=== PATIENT | male | born 1965 | race Caucasian/White ===

== ENCOUNTER 2017-06-12 22:27 | Emergency (ER) | payer BC ==
[2017-06-12 22:48] VITALS: BP 109/69; PULSE 65; TEMP 98.2; BMI 16.9
--- NOTE | 2017-06-13 01:57 | PDOC ---
History of Present Illness - General History Source: Patient Exam Limitations: No Limitations - History of Present Illness Initial Comments: 06/13/17 02:13 The patient is a 51 year old male with significant past medical history of [place], hypertension, hyperlipidemia who presents to the ED for 1 week of increasing pain, swelling, and redness of the left calf radiating down to the foot. Patient reports he was playing soccer a week ago when he got kicked in the left posterior calf. Subsequently, he developed pain, swelling and redness above and below the calf, tracking all the way down to the dorsum of the left foot. Patient is still able to ambulate. The patient denies fever, chills, cough, SOB, chest pain, and palpitations. The patient denies abdominal pain, nausea, vomiting, and diarrhea. Allergies: NKDA Social History: No alcohol, tobacco, or drug use reported. Past Surgical History: appendectomy PCP: n/a <Radha Lopez - Last Filed: 06/13/17 04:14> - General History Source: Patient <Bryn Garcia - Last Filed: 06/13/17 04:17> - General Chief Complaint: Edema Stated Complaint: FOOT INJURY Time Seen by Provider: 06/13/17 01:53 Past History <Radha Lopez - Last Filed: 06/13/17 04:14> - Past Medical History Cardiac Disorders: Yes (LA ()) HTN: Yes Hypercholesterolemia: Yes - Surgical History Appendectomy: Yes - Psycho/Social/Smoking Cessation Hx Anxiety: No Suicidal Ideation: No Smoking History: Never smoked Have you smoked in the past 12 months: No Information on smoking cessation initiated: No Hx Alcohol Use: No Drug/Substance Use Hx: No Substance Use Type: None <Bryn Garcia - Last Filed: 06/13/17 04:17> - Past Medical History Allergies/Adverse Reactions: Allergies Allergy/AdvReac Type Severity Reaction Status Date / Time No Known Allergies Allergy Verified 06/12/17 22:45 Home Medications: Ambulatory Orders Aspirin [ASA -] 325 mg PO DAILY 08/16/14 Atorvastatin Ca [Lipitor] 10 mg PO HS 08/16/14 Lisinopril [Prinivil] 5 mg PO DAILY 08/16/14 Nebivolol HCl [Bystolic] 2.5 mg PO DAILY 08/16/14 Methocarbamol [Robaxin -] 1,000 mg PO QID #40 tablet 03/10/16 Review of Systems - Review of Systems Able to Perform ROS?: Yes Comments:: 06/13/17 02:13 CONSTITUTIONAL: Absent: fever, no chills, no fatigue EYES: Absent: visual changes ENT: Absent: ear pain, no sore throat CARDIOVASCULAR: Absent: chest pain, no palpitations RESPIRATORY: Absent: cough, no SOB GI: Absent: abdominal pain, no nausea, no vomiting, no constipation, no diarrhea GENITOURINARY: Absent: dysuria, no frequency, no hematuria MUSCULOSKELETAL: +increasing pain, swelling, and redness of the left calf radiating down to the foot Absent: back pain SKIN: Absent: rash NEURO: Absent: headache <Radha Lopez - Last Filed: 06/13/17 04:14> *Physical Exam - Vital Signs Last Vital Signs Temp Pulse Resp BP Pulse Ox 98.2 F 65 19 109/69 99 06/12/17 22:46 06/12/17 22:46 06/12/17 22:46 06/12/17 22:46 06/12/17 22:46 - Physical Exam Comments: 06/13/17 02:13 GENERAL: Well-appearing, well-nourished. No apparent distress. HEENT: Normocephalic, atraumatic. PERRL, EOM intact. CARDIOVASCULAR: Normal S1, S2. Regular rate and rhythm. PULMONARY: Clear to auscultation bilaterally. ABDOMEN: Soft, non-distended, non-tender. MUSCULOSKELETAL Normal range of motion at all joints. No bony deformities. No CVA tenderness. EXTREMITIES: Diffuse tenderness and ecchymosis to the left posterior calf and the left anterior fib-tib region. Ecchymosis, tenderness and swelling to the dorsum of the left foot and left medial tibia. SKIN: Warm and dry. Normal capillary refill. No rashes. No jaundice. NEUROLOGICAL: Alert, awake, appropriate. Cranial nerves 2-12 intact. No focal neurological deficits. Gait is steady. <Radha Lopez - Last Filed: 06/13/17 04:14> - Vital Signs Last Vital Signs Temp Pulse Resp BP Pulse Ox 98.2 F 65 19 109/69 99 06/12/17 22:46 06/12/17 22:46 06/12/17 22:46 06/12/17 22:46 06/12/17 22:46 <Bryn Garcia - Last Filed: 06/13/17 04:17> ED Treatment Course - RADIOLOGY Radiograph Interpretation: 06/13/17 04:14 EXAM: CT left lower extremity without contrast Reviewed by Imaging installation technician: FINDINGS: There is no fracture. 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 No joint effusion of the knee or ankle.. There is scattered subcutaneous edema which may represent bruising, most commonly seen next to the medial aspect of the distal calf. A 4.2 x 2.1 x 1.2 cm subcutaneous density adjacent to the proximal tibia could represent a hematoma. An infectious process is not excluded. IMPRESSION: No fracture. Soft tissue edema likely represents bruising although an infectious process is not completely excluded, and there is a a suspected 4.2 cm subcutaneous hematoma adjacent to the proximal tibia. <Radha Lopez - Last Filed: 06/13/17 04:14> Medical Decision Making - Medical Decision Making 06/13/17 04:17 Dr. Garcia: The scribe's documentation has been prepared under my direction and personally reviewed by me in its entirery. I confirm that the note above accurately reflects all work, treatment, procedures, and medical decision making performed by me. <Bryn Garcia - Last Filed: 06/13/17 04:17> *DC/Admit/Observation/Transfer - Attestations Scribe Attestion: 06/13/17 02:14 Documentation prepared by Radha Lopez, acting as medical physicist for Bryn Garcia MD/DO. <Radha Lopez - Last Filed: 06/13/17 04:14> - Discharge Dispostion Admit: No <Bryn Garcia - Last Filed: 06/13/17 04:17> Diagnosis at time of Disposition: Leg pain, left - Discharge Dispostion Disposition: HOME Condition at time of disposition: Stable - Referrals Referrals: Alec Villa MD [Staff Physician] - - Patient Instructions Printed Discharge Instructions: DI for Leg Pain
== END 2017-06-13 04:22 | disposition home or self-care (01) ==
LOC: JER 22:27
DX: S89.82XA Other specified injuries of left lower leg, initial encounter (principal); W50.1XXA Accidental kick by another person, initial encounter; Y93.66 Activity, soccer; Y92.322 Soccer field as the place of occurrence of the external cause; Y99.8 Other external cause status; I25.10 Atherosclerotic heart disease of native coronary artery without angina pectoris; I10 Essential (primary) hypertension; I25.2 Old myocardial infarction
CPT/HCPCS: 73700-TC-RT; 99281-25

== ENCOUNTER 2018-09-21 14:41 | Emergency (ER) | payer BC ==
[2018-09-21 15:01] VITALS: TEMP 99.3; BMI 26.4
--- NOTE | 2018-09-21 15:22 | PDOC ---
History of Present Illness - General Chief Complaint: Pain Stated Complaint: ABDOMINAL PAIN Time Seen by Provider: 09/21/18 15:07 - History of Present Illness Initial Comments: 09/21/18 15:21 53 yo M with h/o HTN, HLD, VT who p/w right sided abdominal pain. Patient with 2 days, of worsening, pleuritic, RUQ pain at lower rib margin. Pain also worse with rotational movement. Patient reports recent fall 3-4 days ago. Denies heavy lifting, repetitive movement, straining. Patient denies N/V, palpitations, F,C, CP, cough, wheezing, leg swelling/leg pain, SOB, urinary complaints, abdominal pain, hematuria. BPR,, diarrhea, constipation, lightheadedness, weakness, sensory changes. PMHx: as noted above. Does not recall past stress testing. Denies h/o stent placement, CABG. Denies h/o abdominal surgery. ROS: as noted SHx: Distant smoking history. Denies Etoh, IVDA. Allergies:NKDA Cardiology Dr. Cisneros Past History - Past Medical History Allergies/Adverse Reactions: Allergies Allergy/AdvReac Type Severity Reaction Status Date / Time No Known Allergies Allergy Verified 09/21/18 14:56 Home Medications: Ambulatory Orders Aspirin [ASA -] 162 mg PO DAILY 08/16/14 Atorvastatin Ca [Lipitor] 10 mg PO HS 08/16/14 Lisinopril [Prinivil] 5 mg PO DAILY 08/16/14 Nebivolol HCl [Bystolic] 2.5 mg PO DAILY 08/16/14 Cardiac Disorders: Yes ([place] ()) COPD: No HTN: Yes Hypercholesterolemia: Yes - Surgical History Appendectomy: Yes - Suicide/Smoking/Psychosocial Hx Smoking History: Never smoked Have you smoked in the past 12 months: No Hx Alcohol Use: No Drug/Substance Use Hx: No Substance Use Type: None Review of Systems - Review of Systems Comments:: 09/21/18 15:21 GENERAL/CONSTITUTIONAL: No fever or chills. No weakness. HEAD, EYES, EARS, NOSE AND THROAT: No change in vision. No ear pain or discharge. No sore throat. CARDIOVASCULAR: +chest pain. No shortness of breath RESPIRATORY: No cough, wheezing, or hemoptysis. GASTROINTESTINAL: No nausea, vomiting, diarrhea or constipation. GENITOURINARY: No dysuria, frequency, or change in urination. MUSCULOSKELETAL: No joint or muscle swelling or pain. No neck or back pain. SKIN: No rash NEUROLOGIC: No headache, vertigo, loss of consciousness, or change in strength/ sensation. ENDOCRINE: No increased thirst. No abnormal weight change HEMATOLOGIC/LYMPHATIC: No anemia, easy bleeding, or history of blood clots. ALLERGIC/IMMUNOLOGIC: No hives or skin allergy. *Physical Exam - Vital Signs Last Vital Signs Temp Pulse Resp BP Pulse Ox 99.3 F 59 L 18 104/69 98 09/21/18 14:52 09/21/18 14:52 09/21/18 14:52 09/21/18 14:52 09/21/18 14:52 - Physical Exam Comments: 09/21/18 15:21 GENERAL: Awake, alert, and fully oriented, in no acute distress HEAD: No signs of trauma, normocephalic, atraumatic EYES: PERRLA, EOMI, sclera anicteric, conjunctiva clear ENT: Auricles normal inspection, hearing grossly normal, nares patent, oropharynx clear without exudates. Moist mucosa NECK: Normal ROM, supple, no lymphadenopathy, JVD, or masses LUNGS: No distress, speaks full sentences, clear to auscultation bilaterally HEART: Regular rate and rhythm, normal S1 and S2, no murmurs, rubs or gallops, peripheral pulses normal and equal bilaterally. CHEST: + Reproducible right intercostal margin ttp, with absent bony deformity, crepitus. ABDOMEN: Soft, nontender, normoactive bowel sounds. No guarding, no rebound. No masses EXTREMITIES : Normal inspection, Normal range of motion, no edema. No clubbing or cyanosis. SKIN: Warm, Dry, normal turgor, no rashes or lesions noted Moderate Sedation - Procedure Monitoring Vital Signs: Procedure Monitoring Vital Signs Temperature 99.3 F 09/21/18 14:52 Pulse Rate 59 L 09/21/18 14:52 Respiratory Rate 18 09/21/18 14:52 Blood Pressure 104/69 09/21/18 14:52 O2 Sat by Pulse Oximetry (%) 98 09/21/18 14:52 ED Treatment Course - LABORATORY CBC & Chemistry Diagram: 09/21/18 16:16 09/21/18 16:16 Medical Decision Making - Medical Decision Making 09/21/18 15:48 53 yo M with h/o HTN, HLD, VT who p/w right sided pleuritic, abdominal pain. VSS , AF, A&OX3. Physical exam with reproducible RUQ ttp at intercostal margin . Likely MSK related pain. ACS/VT r/o. R/o PNA. Low risk PE based on Weils criteria. Although, patient without GI complaints will consider biliary dz., esophagitis, gastritis. Ddx also includes pericarditis, fracture, hernia. ED Course: CBC, CMP, Cardiac Pr. EKG, CXR 09/21/18 17:47 RUQ U/S: No evidence of biliary dz. Nml appearing liver. FAST: Neg PULM U/S: No evidence of PTX or lung pathology 09/21/18 17:52 CBC: Unremarkable CXR: Unremarkable 09/21/18 17:55 EK09/21/18 19:01 CMP: Unremarkable Trop: Neg 09/21/18 22:19 CTA chest: Scattered atelectasis. No PE, or PTX CT AP: Dilation ascending aorta 4.2 cm. No Ao dissection Stable for d/c with return precautions. Advised to f/u with PMD. *DC/Admit/Observation/Transfer Diagnosis at time of Disposition: Abdominal pain Qualifiers: Abdominal location: right upper quadrant Qualified Code(s): R10.11 - Right upper quadrant pain - Discharge Dispostion Disposition: HOME Condition at time of disposition: Stable - Referrals - Patient Instructions Printed Discharge Instructions: DI for Muscle Strain Additional Instructions: Please return to the emergency department with any new or worsening symptoms or concerns. Please follow up with your primary care physician within 72 hours. Please follow up with PMD for Ascending aorta aneurysm 4.2 cm. - Post Discharge Activity - Attestations Physician Attestion: 09/21/18 15:22 I attest to the information provided in this note.
[2018-09-21] MEDS ORDERED: NAPROXEN 500 MG TABLET (FP) PO ONE (15:50)
--- NOTE | 2018-09-21 16:11 | PDOC ---
Attending Attestation - HPI HPI: 09/21/18 16:12 The patient is a 53 year old male with a significant past medical history of HTN , HLD, and [place], who presents to the ED for right sided pleuritic pain to his right upper quadrant for about 2 days. He reportedly fell 3 days ago on the sidewalk while [place] the train station and landed on his back but denies LOC or head trauma. The patient denies palpitations, shortness of breath, headache and dizziness. The patient denies fever, chills, nausea, vomit, diarrhea and constipation. The patient denies dysuria, frequency, urgency and hematuria. Allergies: NKDA Dedicated Truck Driver: Dr. Young - Medical Decision Making 09/21/18 16:12 Documentation prepared by Candice Peace, acting as medical territory manager for Linda Duron MD <Candice Peace - Last Filed: 09/21/18 16:39> - Resident Resident Name: Claude Faustin - ED Attending Attestation I have performed the following: I have examined & evaluated the patient, The case was reviewed & discussed with the resident, I agree w/resident's findings & plan, Exceptions are as noted - Physicial Exam PE: 09/21/18 17:14 head atraumatic. awake alert lungs clear bilaterally heart rrr no mrg abd soft ruq ttp. no rib crepitus or step off. no noted eccymosis. no cva tenderness. skin warm and dry. no eccymsis. legs wwp no edema no calf tenderness. 2 + dp/ pt no midline spinal tenderness. GCs 15 - Medical Decision Making 09/21/18 17:15 differential: traumatic injury such as rib fx, liver lac, cholelithiasis, cholecystitis, renal injury pe. acs. considered. plan ekg labx. cxr . will perform bedside ruq ultraound and fast exam. 09/21/18 17:52 focused ED ultrasound RUQ indication RUQ pain gallladder scanned in two planes. no stones no wall thickening. no pericholecystic fluid. cbd < 4mm. anterior gallbladder wall < 4mm negative sonographic medina's impressions: normal gallbladder focused ED ultrasound FAST ., indication trauma ruq pain r/o free fluid right upper and left upper quadrant scannd and pelvis using curvilinear probe. no free intrperitoneal fluid noted. thorax negative for ptx or thoaric fluid. subxiphoid cardiac view no pericardial fliud, good contractility. impressions: negative FAST exam. due to pluerisy of pain, family h/o father with PE naomie obtain ct angio r/o pe, continue to liver ro solid organ injuryl. <Linda Duron - Last Filed: 09/21/18 17:59> Heart Score/ECG Review #1 ECG reviewed & interpreted by me at: 17:59 General ECG Interpretation: Sinus Rhythm, Normal Rate, Normal Intervals, No acute ischemic changes <Linda Duron - Last Filed: 09/21/18 17:59> Procedures - Bedside Ultrasound Bedside Ultrasound: Focused Assessment w/Sonography for Trauma Other: FAST and RUQ us, see mdm <Linda Duron - Last Filed: 09/21/18 17:59>
[2018-09-21] MEDS ORDERED: NAPROXEN 500 MG TABLET (FP) ONE (16:13)
[2018-09-21 17:19] LABS: BASO % 0.3 % (0-2.0); EOS % 2.1 % (0-4.5); HEMATOCRIT 43.1 % (35.4-49); HEMOGLOBIN 15.4 GM/dL (11.7-16.9); LYMPH % 12.9 % (8-40); MCH 33.3 pg (25.7-33.7); MCHC 35.6 g/dl (32.0-35.9); MEAN CELL VOLUME 93.3 fl (80-96); MEAN PLT VOLUME 7.6 fl (7.5-11.1); MONO % 11.5 % (3.8-10.2); NEUT % 73.2 % (42.8-82.8); PLATELET COUNT 234 K/MM3 (134-434); RBC 4.62 M/mm3 (4.00-5.60); RDW 13.1 % (11.9-15.9); WHITE BLOOD COUNT 9.7 K/mm3 (4.0-10.0)
[2018-09-21 17:46] LABS: INR 1.08 (0.83-1.09); PROTHROMBIN TIME (PATIENT) 12.8 SEC (9.7-13.0)
[2018-09-21 17:56] LABS: ALK PHOS 71 U/L (45-117); ANION GAP 8 MMOL/L (8-16); BILIRUBIN,TOTAL 0.7 mg/dL (0.2-1); BLOOD UREA NITROGEN 17 mg/dL (7-18); CALCIUM 8.9 mg/dL (8.5-10.1); CHLORIDE 106 mmol/L (98-107); CO2 27 mmol/L (21-32); CREATININE 0.8 mg/dL (0.55-1.3); GLUCOSE,RANDOM 84 mg/dL (74-106); SGOT/AST 14 U/L (15-37); SGPT/ALT 26 U/L (13-61); SODIUM 140 mmol/L (136-145); TOT PROT 6.5 g/dl (6.4-8.2)
--- NOTE | 2018-09-21 22:20 | PDOC ---
*Physical Exam - Vital Signs Last Vital Signs Temp Pulse Resp BP Pulse Ox 99.3 F 59 L 18 104/69 99 09/21/18 14:52 09/21/18 14:52 09/21/18 14:52 09/21/18 14:52 09/21/18 16:30 ED Treatment Course - LABORATORY CBC & Chemistry Diagram: 09/21/18 16:16 09/21/18 16:16 - ADDITIONAL ORDERS Additional order review: Laboratory Results 09/21/18 09/21/18 09/21/18 16:16 16:16 16:16 PT with INR 12.80 INR 1.08 Sodium 140 Potassium 4.0 Chloride 106 Carbon Dioxide 27 Anion Gap 8 BUN 17 Creatinine 0.8 Creat Clearance w eGFR > 60 Random Glucose 84 Calcium 8.9 Total Bilirubin 0.7 AST 14 L ALT 26 Alkaline Phosphatase 71 Creatine Kinase 106 Troponin I < 0.02 Total Protein 6.5 Albumin 4.0 09/21/18 16:16 RBC 4.62 MCV 93.3 MCHC 35.6 RDW 13.1 MPV 7.6 Neutrophils % 73.2 Lymphocytes % 12.9 Monocytes % 11.5 H Eosinophils % 2.1 Basophils % 0.3 - Medications Given in the ED: ED Medications Discontinued Medications Generic Name Dose Route Start Last Admin Trade Name Freq PRN Reason Stop Dose Admin Naproxen 500 mg 09/21/18 15:50 09/21/18 15:55 Naprosyn - PO 09/21/18 15:51 500 mg ONCE ONE Administration Medical Decision Making - Medical Decision Making 09/21/18 22:18 Patient Name: JAY HORTON THIS IS A PRELIMINARY REPORT FROM [facility] [employer] EXAM: CTA chest with contrast and CT abdomen and pelvis with contrast IMAGES:[id number] DATE OF EXAM: 2018-09-21 20:00:55 REASON FOR EXAM: Trauma. Rule out PE. COMPARISON: None Findings: CTA chest: Scattered atelectasis and fibrotic changes in the lungs. No focal consolidation, acute lung contusion, pleural effusion, or pneumothorax. Dilatation of ascending aorta measuring up to 4.2 cm. No evidence for aortic dissection. No evidence for pulmonary embolism. Degenerative changes in spine and shoulders. No acute fracture. CT abdomen and pelvis: No evidence for aortic aneurysm or aortic dissection. Borderline mild hepatomegaly. The gallbladder, pancreas and adrenal glands are unremarkable. Mild splenomegaly, No renal or urinary calculi. No evidence for acute aortic injury or acute solid organ injury. No evidence for diverticulitis, small bowel obstruction, free fluid, or free air. Urinary bladder is intact. Degenerative changes in the spine and pelvis. Mild scoliosis. No acute fracture. One or more of the following dose reduction techniques were used: automated exposure control, adjustment of the mA and/or kV according to patient size, use of iterative reconstructive technique. THIS DOCUMENT HAS BEEN ELECTRONICALLY SIGNED 09/21/18 22:20 Pt has normal labs; normal exam; normal CT scan; normal vitals. Pt is ready and stable for d/c. He has a dilated aorta ascending; he will be given a copy, to share with his PMD. *DC/Admit/Observation/Transfer Diagnosis at time of Disposition: Abdominal pain Qualifiers: Abdominal location: right upper quadrant Qualified Code(s): R10.11 - Right upper quadrant pain - Discharge Dispostion Condition at time of disposition: Stable - Referrals - Patient Instructions Printed Discharge Instructions: DI for Muscle Strain Additional Instructions: Please return to the emergency department with any new or worsening symptoms or concerns. Please follow up with your primary care physician within 72 hours. - Post Discharge Activity
[2018-09-21 22:22] VITALS: BP 101/65; PULSE 66
--- NOTE | 2018-09-22 11:17 | EKG ---
Test Reason : Blood Pressure : / mmHG Vent. Rate : 072 BPM Atrial Rate : 072 BPM P-R Int : 206 ms QRS Dur : 098 ms QT Int : 388 ms P-R-T Axes : 019 014 016 degrees QTc Int : 424 ms NORMAL SINUS RHYTHM NORMAL ECG WHEN COMPARED WITH ECG OF 17-JUL-2011 09:27, T WAVE VARIATION Confirmed by CANDY YEN MD ([id number]) on 09/22/2018 11:16:30 AM Referred By: Confirmed By:CANDY YEN MD
== END 2018-09-21 22:31 | disposition home or self-care (01) ==
LOC: JER 14:41
DX: R10.11 Right upper quadrant pain (principal); E78.5 Hyperlipidemia, unspecified; I10 Essential (primary) hypertension; I25.2 Old myocardial infarction
CPT/HCPCS: 36415; 71045-TC-FY; 71275-TC; 74177-TC; 80053; 82550; 84484; 85025; 85610; 93005; 93010; 99283-25

== ENCOUNTER 2018-12-14 19:06 | Emergency (ER) | payer BC ==
[2018-12-14 19:19] VITALS: BP 130/74; PULSE 86; TEMP 98.1; BMI 26.4
--- NOTE | 2018-12-14 20:24 | PDOC ---
History of Present Illness - General Chief Complaint: Edema Stated Complaint: LEG PAIN Time Seen by Provider: 12/14/18 20:21 History Source: Patient - History of Present Illness Initial Comments: 12/14/18 20:42 The patient is a 53 year old male with a significant PMH of [place] (9 years previous ), HTN, HLD who presents to our ED c/o LLE edema and pain. Patient states he first noticed the pain after colliding with another player during a soccer game on Saturday evening in which he was kicked in the [place]. States he continued to play soccer and then went home and elevated his limb and applied ice. States pain improved but then returned yesterday and was accompanied by swelling, redness and a throbbing pain when he tried to bear weight. Denies any fevers/ chills. No recent travel or immobilization. The patient denies chest pain, shortness of breath, abdominal pain, nausea/ vomiting, diarrhea/constipation, dysuria/hematuria. NKDA Social: denies toxic habits PMD: Dr. Cisneros (sees cardiology for primary care). Past History - Past Medical History Allergies/Adverse Reactions: Allergies Allergy/AdvReac Type Severity Reaction Status Date / Time No Known Allergies Allergy Verified 09/21/18 14:56 Home Medications: Ambulatory Orders Aspirin [ASA -] 162 mg PO DAILY 08/16/14 Atorvastatin Ca [Lipitor] 10 mg PO HS 08/16/14 Lisinopril [Prinivil] 5 mg PO DAILY 08/16/14 Nebivolol HCl [Bystolic] 2.5 mg PO DAILY 08/16/14 Cephalexin [Keflex] 500 mg PO QID 5 Days #20 capsule 12/14/18 Cardiac Disorders: Yes ([place] (), angiogranm,CAD) CVA: No COPD: No HTN: Yes Hypercholesterolemia: Yes - Surgical History Appendectomy: Yes GI Surgery: Yes (a/p) - Suicide/Smoking/Psychosocial Hx Smoking History: Never smoked Have you smoked in the past 12 months: No Information on smoking cessation initiated: No Hx Alcohol Use: Yes ("Occasional") Drug/Substance Use Hx: No Substance Use Type: None Review of Systems - Review of Systems Constitutional: No: Chills, Fever HEENTM: No: Recent change in vision Respiratory: No: Cough, Shortness of Breath Cardiac (ROS): No: Chest Pain, Lightheadedness, Palpitations, Syncope ABD/GI: No: Constipated, Diarrhea, Nausea, Vomiting *Physical Exam - Vital Signs Last Vital Signs Temp Pulse Resp BP Pulse Ox 98.1 F 86 20 130/74 97 12/14/18 19:15 12/14/18 19:15 12/14/18 19:15 12/14/18 19:15 12/14/18 19:15 - Physical Exam General Appearance: Yes: Nourished, Appropriately Dressed HEENT: positive: Normal Voice, Hearing Grossly Normal Neck: positive: Trachea midline, Supple Respiratory/Chest: positive: Lungs Clear, Normal Breath Sounds Cardiovascular: positive: S1, S2 Gastrointestinal/Abdominal: positive: Normal Bowel Sounds, Soft Extremity: positive: Other (L lower extremity, medial hematoma, lateral erythema /edema/TTP; 2+ DP pulse, full ROM, no tibial tuberosity TTP) Neurologic: positive: Fully Oriented, Alert Moderate Sedation - Procedure Monitoring Vital Signs: Procedure Monitoring Vital Signs Temperature 98.1 F 12/14/18 19:15 Pulse Rate 86 12/14/18 19:15 Respiratory Rate 20 12/14/18 19:15 Blood Pressure 130/74 12/14/18 19:15 O2 Sat by Pulse Oximetry (%) 97 12/14/18 19:15 ED Treatment Course - LABORATORY CBC & Chemistry Diagram: 12/14/18 20:49 12/14/18 20:49 Medical Decision Making - Medical Decision Making 12/14/18 20:49 53 year old male with worsening LLE pain, edema and erythema. Pain with weight bearing VS unremarkable. 2+ DP pulses, lateral erythema and edema. Will obtain LE Duplex to r/o clot. Also consider cellulitis in light of patient's poorly demarcated erythema and edema. Tib/Fib XR pending in light of mechanism of injury. Tylenol for pain control. 12/14/18 21:55 CBC, CMP unremarkable 12/14/18 22:08 My read of Tib/Fib XR shows no acute fracture. Patient reassessed. Symptomatically improved s/p Tylenol. Duplex pending. 12/14/18 22:57 LLE duplex negative for clot Patient ambulatory with less pain s/p Tylenol. 12/14/18 23:23 Will discharge home with 5 day course of Cephalexin for clinically diagnosed cellulitis, return precautions of increased in pain/erythema/edema or systemic signs of infection including fever. I discussed the physical exam findings, EKG and chest x-ray with the patient and patient's mother. I answered patient and patient's mother's questions. The patient and his mother felt satisfied with the care received and understood the discharge instructions. The patient will follow-up with his pharmacy technician in the next 48 hours and return to the Emergency Department with any new/ worsening/concerning symptoms. *DC/Admit/Observation/Transfer Diagnosis at time of Disposition: Leg pain - Discharge Dispostion Disposition: HOME Condition at time of disposition: Good Decision to Admit order: No - Prescriptions Prescriptions: Cephalexin [Keflex] 500 mg PO QID 5 Days #20 capsule - Referrals - Patient Instructions Additional Instructions: An antibiotic has been called to your pharmacy. Please take the entire prescribed course. Return to the Emergency Department for any new/worsening/concerning symptoms including increased pain, swelling, redness or fevers/chills. - Post Discharge Activity
[2018-12-14] MEDS ORDERED: ACETAMINOPHEN 1000 MG/100 ML VIAL (NON FORMULARY) IVPB ONE (20:43)
[2018-12-14] MEDS ORDERED: ACETAMINOPHEN INJECTION 100 ML IVPB ONE (20:45)
[2018-12-14 21:01] LABS: BASO % 0.6 % (0-2.0); EOS % 2.6 % (0-4.5); HEMATOCRIT 43.7 % (35.4-49); HEMOGLOBIN 15.5 GM/dL (11.7-16.9); LYMPH % 17.8 % (8-40); MCH 33.9 pg (25.7-33.7); MCHC 35.5 g/dl (32.0-35.9); MEAN CELL VOLUME 95.6 fl (80-96); MEAN PLT VOLUME 7.5 fl (7.5-11.1); MONO % 11.6 % (3.8-10.2); NEUT % 67.4 % (42.8-82.8); PLATELET COUNT 247 K/MM3 (134-434); RBC 4.57 M/mm3 (4.00-5.60); RDW 13.2 % (11.9-15.9); WHITE BLOOD COUNT 9.1 K/mm3 (4.0-10.0)
--- NOTE | 2018-12-14 21:05 | PDOC ---
Attending Attestation - HPI HPI: 12/14/18 21:28 The patient is a 53 year old male, with a significant past medical history of [place] , HTN, and HLD, who presents to the emergency department today complaining of left lower extremity pain and swelling. The patient states they were playing soccer on Saturday when he got kicked in the left [place] and was not wearing his [place] guards at the time. Patient reports that he went home and immediately applied ice. He notes left calf edema, erythematous, and tenderness. The patient denies chest pain, shortness of breath, headache and dizziness. Denies fever, chills, nausea, vomit, diarrhea and constipation. Denies dysuria, frequency, urgency and hematuria. Allergies: NKA Social history: No reported PCP: Dr. Cisneros - Physicial Exam PE: 12/14/18 22:31 GENERAL: Well-appearing, well-nourished. No apparent distress. HEENT: Normocephalic, atraumatic. PERRL, EOM intact. CARDIOVASCULAR: Normal S1, S2. Regular rate and rhythm. PULMONARY: Clear to auscultation bilaterally. ABDOMEN: Soft, non-distended, non-tender. EXTREMITIES: (+)lateral surface of left calf edema and ecchymotic (+)4x4cm erythematous area. Normal ROM in all four extremities. No gross deformities. SKIN: Warm, dry. No rash NEUROLOGICAL: No focal neurological deficits. <Cari Jacinto - Last Filed: 12/14/18 22:31> - Resident Resident Name: Kathrine West - ED Attending Attestation I have performed the following: I have examined & evaluated the patient, The case was reviewed & discussed with the resident, I agree w/resident's findings & plan, Exceptions are as noted - Medical Decision Making 12/17/18 02:57 NEGATIVE DOPPLER DUPLEX, no dvt imp hematoma/possible early cellulitis/pt placed on antibiotics/ d/c home to follow up with his PCP <Gilda Monzon - Last Filed: 12/17/18 02:58> Attestations - Attestations 12/14/18 21:28 Documentation prepared by Cari Jacinto, acting as medical reimbursement manager for Gilda Monzon MD. <Cari Jacinto - Last Filed: 12/14/18 22:31>
[2018-12-14 21:27] LABS: ALK PHOS 73 U/L (45-117); ANION GAP 5 MMOL/L (8-16); BILIRUBIN,TOTAL 0.3 mg/dL (0.2-1); BLOOD UREA NITROGEN 18 mg/dL (7-18); CALCIUM 9.3 mg/dL (8.5-10.1); CHLORIDE 106 mmol/L (98-107); CO2 30 mmol/L (21-32); CREATININE 0.9 mg/dL (0.55-1.3); GLUCOSE,RANDOM 116 mg/dL (74-106); POTASSIUM 4.5 mmol/L (3.5-5.1); SGOT/AST 11 U/L (15-37); SGPT/ALT 31 U/L (13-61); SODIUM 141 mmol/L (136-145); TOT PROT 6.5 g/dl (6.4-8.2)
== END 2018-12-14 23:12 | disposition home or self-care (01) ==
LOC: JER 19:06
PROC: 3E033NZ Introduction of Analgesics, Hypnotics, Sedatives into Peripheral Vein, Percutaneous Approach (ICD-10-PCS; principal; 2018-12-14)
DX: L03.116 Cellulitis of left lower limb (principal); W51.XXXA Accidental striking against or bumped into by another person, initial encounter; Y93.66 Activity, soccer; Y92.322 Soccer field as the place of occurrence of the external cause; Y99.8 Other external cause status
CPT/HCPCS: 36415; 73590-TC-LT-FY; 80053; 85025; 93971-TC; 99282-25; J0131